=== PATIENT | female | born 1945 | race Caucasian/White ===

== ENCOUNTER 2022-04-30 10:22 | Emergency (ER) | payer MEDICARE, SELFPAY ==
[2022-04-30 10:23] VITALS: BP 183/93; PULSE 92; RESP 14; TEMP 36.1; O2SAT 97; BMI 33.3
--- NOTE | 2022-04-30 10:36 | EX.ED.DYSGE1 ---
HPI History of Present Illness Chief Complaint: Allergic Reaction Informant: patient Narrative Narrative: Patient is a 76-year-old female presenting with swelling of her upper lip. Patient noticed swelling of her upper lip yesterday around 10 AM. It worsens when she was at work yesterday until around 6 PM. She took a dose of 25 mg Benadryl at 7 PM and then up to 50 mg at 11:30 PM. She woke up and continued to have the swelling. She states is not progressed since last night. She also has a rash on her bilateral arms as well as her left hands that is itchy in nature. She also states her back feels itchy. She denies any difficulty breathing. Denies any sensation of her tongue swelling or throat swelling. She denies any GI symptoms. Denies any pain with swallowing, mouth pain or pain with urination/defecation. She denies any new medications. She states she was on a 10-day course of antibiotics for an infected abscess (looks to be doxycycline) that she finished 1 week ago. She is not on any LYLE or ARB's. She denies any history of anaphylaxis. She notes she has cats at home but this is not new. She does feel that her eyelids are little swollen as well. She denies any new lotions, soaps or other new exposures. Denies any new foods. No other complaints at this time. Prior similar symptoms: No PFSH [facility] Medical History Diabetes GERD (gastroesophageal reflux disease) Hypertension Home Medications famotidine 20 mg tablet (Pepcid) 20 mg PO BID #14 tabs 04/30/22 [Rx Last Taken Unknown] prednisone 20 mg tablet 40 mg PO DAILY #8 tabs 04/30/22 [Rx Last Taken Unknown] Allergy/AdvReac Type Severity Reaction Status Date / Time No Known Allergies Allergy Verified 04/30/22 10:22 Social History Smoking Status: Never smoker ROS ROS ED Constitutional Constitutional ED: Denies chills or fever(s) Eyes Eyes: Denies change in vision or diplopia ENT ENT ED: Reports other Details: Upper lip swelling ; Denies rhinorrhea or sore throat Cardiovascular Cardiovascular: Denies chest pain Respiratory/Chest Respiratory/Chest: Denies cough or dyspnea Gastrointestinal Gastrointestinal: Denies abdominal pain, diarrhea or nausea Musculoskeletal Musculoskeletal: Denies arthralgias or myalgias Integumentary Reports rash Neurologic Neurologic: Denies headache(s) EXAM Physical Exam Const Vital Signs: 04/30/22 10:23 Temperature 97 F L Temperature Source Temporal Pulse Rate 92 Respiratory Rate 14 Blood Pressure 183/93 H Blood Pressure Mean 123 Pulse Ox 97 Oxygen Delivery Method Room Air Positive well nourished and well developed General Appearance ED: well developed and NAD HEENT Reports moist mucous membranes HEENT Narrative: Edema of the upper lip. No edema of the tongue or lower lip. Uvula is midline. Normal phonation. Subtle edema of the bilateral upper eyelids. Negative for trauma Eyes PERRL and EOMs intact bilaterally Neck supple Neck Narrative: No stridor. Normal range of motion. Resp normal respiratory effort and clear to auscultation bilaterally Auscultation: Negative for rhonchi or wheezes Cardio regular rate, regular rhythm and no murmurs GI normal to inspection, nondistended, normoactive bowel sounds and non-tender Back/Spine no CVA tenderness Extremity normal to inspection General Extremety ED: Negative for edema or tenderness General Extremity: Negative for edema Neuro oriented x3 Sensorium / Orientation: alert Motor Exam: Negative for general weakness Psych mental status grossly normal Skin Skin Narrative: Scattered erythema on the left fourth and fifth fingers as well as on bilateral forearms and the back. Does not appear significantly raised, questionably urticarial. Negative Nikolsky sign. MDM MDM MDM Narrative Medical decision making narrative: Patient evaluated for upper lip swelling. Differential includes allergic reaction, delayed hypersensitivity reaction and angioedema. Patient is not on any medications that should cause angioedema specifically any LYLE inhibitors or ARB's. She does not have any fever or systemic symptoms making dress syndrome less likely. She has not been on any new medications for the past week so suspicion for an acute drug reaction. Patient vital signs are significant for hypertension which she does have a history of. She is not having any chest pain or symptoms consistent with hypertensive emergency. Patient will be treated with steroids and Pepcid. She has Benadryl at home. She drove here so she is not given a dose of Benadryl. Her symptoms been stable for over 12 hours I do not think she requires extended monitoring or IV medications at this time. Patient counseled on return precautions including development of GI symptoms, difficulty breathing or further swelling of her mouth/tongue. She verbalizes agreement understand this plan. Is discharged home in stable condition. Discharge Plan Triage Chief Complaint: Allergic Reaction ED Provider: Maura Eubanks Dx/Rx/DC Orders Clinical Impression: Swollen upper lip, Allergic reaction Instructions: ED General Allergic Reactions Prescriptions: New prednisone 20 mg tablet 40 mg PO DAILY Qty: 8 0RF famotidine [Pepcid] 20 mg tablet 20 mg PO BID Qty: 14 0RF Primary Care Provider: Dipak Taylor Activity Restrictions/Additional Instructions: You have worsening of your symptoms including swelling of your tongue, more swelling in your mouth, wheezing/shortness of breath or vomiting/diarrhea please return to the emergency room. You may also continue take Benadryl up to 50 mg every 6 hours at home. Exact cause of your reaction is not clear at this time. Disposition Disposition: Home, Self Care
[2022-04-30] MEDS: predniSONE 20 MG Tablet 60 MG PO (11:07)
[2022-04-30] MEDS: Famotidine 20 MG Tablet PO (11:08)
== END 2022-04-30 11:28 | disposition home or self-care (01) ==
PROVIDERS: Emergency Provider Emergency Medicine; PCP Student in an Organized Health Care Education/Training Program; Visit Provider Emergency Medicine
DX: T78.40XA Allergy, unspecified, initial encounter (principal); E11.9 Type 2 diabetes mellitus without complications; I10 Essential (primary) hypertension; R21 Rash and other nonspecific skin eruption; Z79.52 Long term (current) use of systemic steroids; R22.9 Localized swelling, mass and lump, unspecified
CPT/HCPCS: 99283

== ENCOUNTER 2022-06-15 15:58 | Emergency (ER) | payer MEDICARE, SELFPAY ==
[2022-06-15 15:59] VITALS: BP 148/85; PULSE 94; RESP 17; TEMP 36.8; O2SAT 98; BMI 33.5
--- NOTE | 2022-06-15 16:24 | EX.ED.DYSGE1 ---
HPI <BRUNO Ornelas - Last Filed: 06/15/22 16:58> History of Present Illness Chief Complaint: Edema Narrative Narrative: Patient is a 76-year-old Fe with history of hypertension on lisinopril, diabetes that is diet-controlled, hyperlipidemia, acid reflux who presents to the emergency department with hives, lower lip swelling. Patient is on her last day of doxycycline for what her doctor called pneumonia 10 days ago. Patient was seen here on April 30, 2022 for the same. Patient did not have her medication list with her, she was a poor historian. She did not let the ER physician know that she was on lisinopril. However she was post 1 week of doxycycline at that time as well. Patient today is in no respiratory distress. She states she just woke up with some lower lip swelling as well as some hives on her upper extremities and trunk. She denies any difficulty breathing, denies any tongue swelling. PFS <BRUNO Ornelas - Last Filed: 06/15/22 16:58> [facility] Medical History Diabetes GERD (gastroesophageal reflux disease) Hypertension Home Medications famotidine 20 mg tablet (Pepcid) 20 mg PO BID #14 tabs 04/30/22 [Rx Last Taken Unknown] prednisone 20 mg tablet 40 mg PO DAILY #8 tabs 04/30/22 [Rx Last Taken Unknown] aspirin 81 mg capsule 81 mg PO DAILY 06/15/22 [History Last Taken Unknown] doxycycline hyclate 100 mg tablet 100 mg PO BID 06/15/22 [History Last Taken Unknown] etodolac 200 mg capsule 200 mg PO BID 06/15/22 [History Last Taken Unknown] furosemide 20 mg tablet 20 mg PO DAILY 06/15/22 [History Last Taken Unknown] lisinopril 10 mg tablet 10 mg PO DAILY 06/15/22 [History Last Taken Unknown] lovastatin 20 mg tablet 20 mg PO DAILY 06/15/22 [History Last Taken Unknown] omeprazole 20 mg capsule,delayed release 20 mg PO DAILY 06/15/22 [History Last Taken Unknown] prednisone 50 mg tablet 50 mg PO DAILY #5 tabs 06/15/22 [Rx Last Taken Unknown] Allergy/AdvReac Type Severity Reaction Status Date / Time No Known Allergies Allergy Verified 06/15/22 16:01 Social History Smoking Status: Never smoker ROS <BRUNO Ornelas - Last Filed: 06/15/22 16:58> ROS ED ROS Narrative Constitutional: Negative for fever, chills, weight loss, weakness Eyes: Negative for vision loss, vision change, double vision ENT: Negative for any sore throat, ear pain, congestion. Positive for lower lip swelling Cardiovascular: Negative for any chest pain, tightness, palpitations Respiratory: Negative for any cough, sputum production, hemoptysis, dyspnea, dyspnea on exertion, orthopnea Gastrointestinal: Negative for any abdominal pain, nausea, vomiting, diarrhea, constipation, blood in stool, blood in vomit : Negative for any urinary frequency, dysuria, retention, blood in urine Muscle skeletal: Negative for any muscle joint pain, stiffness, myalgias, arthralgias, neck pain, back pain Neurological: Negative for any headache, syncope, numbness or tingling, dizziness Skin: Negative for any rashes, lumps, abrasions, lacerations. Positive for itching, hives Psychiatric: Negative for any depression, anxiety, stress, suicidal ideation, homicidal ideation Hematologic: Negative for any easy bruising, excessive bruising, easy bleeding Allergies: Negative for any eczema, hives, rash EXAM <BRUNO Ornelsa - Last Filed: 06/15/22 16:58> Physical Exam Narrative Exam Narrative: Vital signs reviewed. Patient appears to be in no respiratory distress, patient is stable. HEET: Head normocephalic atraumatic, TMs clear bilaterally. Posterior pharynx is clear, moist mucous membranes. Nares clear bilaterally. Patient does have slight swelling to the lower lip. Negative for any oropharynx swelling. Negative for any trismus, negative for any hot potato voice. Negative for any uvula deviation. Neck: Supple with no lymphadenopathy or tenderness. No signs of meningismus, negative jolt sign. Cardiac: Regular rate and rhythm no murmurs gallops or rubs, equal peripheral pulses bilaterally. Respiratory: Lungs clear to auscultation bilaterally. No chest tenderness. Abdomen: Soft, nontender, nondistended. No abdominal bruit or pulsatile masses. No hepatosplenomegaly Extremities: No peripheral edema, no signs of gross trauma or deformity. Active full range of motion of all extremities. Neuro: Cranial nerves II through XII intact, no focal neurological deficits. Skin: Clean dry and intact with no purpura, petechiae, vesicles or pustules. Patient does have urticaria to her upper extremities, lower legs as well as her trunk. Backs/flank: No CVA tenderness, no midline spinal tenderness, no deformity. Psych: Normal mood and affect. No SI, HI or acute psychosis. Const Vital Signs: 06/15/22 15:59 06/15/22 16:31 Temperature 98.2 F Temperature Source Temporal Pulse Rate 94 Respiratory Rate 17 Respiratory Effort Normal Non-Labored Respiratory Pattern Normal Blood Pressure 148/85 H Blood Pressure Mean 106 Pulse Ox 98 Oxygen Delivery Method Room Air <Dr. Karissa Beltrán MD - Last Filed: 06/15/22 17:16> Physical Exam Const Vital Signs: 06/15/22 15:59 06/15/22 16:31 Temperature 98.2 F Temperature Source Temporal Pulse Rate 94 Respiratory Rate 17 Respiratory Effort Normal Non-Labored Respiratory Pattern Normal Blood Pressure 148/85 H Blood Pressure Mean 106 Pulse Ox 98 Oxygen Delivery Method Room Air MDM <BRUNO Ornelas - Last Filed: 06/15/22 16:58> [facility] Treatment and Re-Evaluation :: Patient appears well, patient appears nontoxic, vital signs are stable. Patient presents to the emergency department with lower lip swelling as well as some urticaria that is around her arms, trunk. Patient had similar symptoms on April 30, 2022, consistent with doxycycline however she was unable to tell the provider that time that she was on lisinopril. She has spoke with her PCP regarding this reaction. Patient is in no distress, there is no evidence of any anaphylaxis. Secondary to this events occurring surrounding doxycycline, as well as the patient being on lisinopril for years, the patient needs to be placed off of lisinopril as well as an allergy to doxycycline. She did speak with her doctor regarding changing from lisinopril as the primary care doctor does know about this reaction. Patient was given 60 mg of oral prednisone here, as well as Pepcid. She will continue the prednisone at home, she will also take Benadryl at home. She not get it today because she is driving and this can make her tired. She was given strict return precaution to return for any worsening mouth swelling, throat swelling, tongue swelling. She verbally understands. All questions answered. She will follow-up with her PCP regarding her blood pressure medicine, she will no longer take doxycycline <Dr. Karissa Beltrán MD - Last Filed: 06/15/22 17:16> [facility] Treatment and Re-Evaluation :: Patient appears well, patient appears nontoxic, vital signs are stable. Patient presents to the emergency department with lower lip swelling as well as some urticaria that is around her arms, trunk. Patient had similar symptoms on April 30, 2022, consistent with doxycycline however she was unable to tell the provider that time that she was on lisinopril. She has spoke with her PCP regarding this reaction. Patient is in no distress, there is no evidence of any anaphylaxis. Secondary to this events occurring surrounding doxycycline, as well as the patient being on lisinopril for years, the patient needs to be placed off of lisinopril as well as an allergy to doxycycline. She did speak with her doctor regarding changing from lisinopril as the primary care doctor does know about this reaction. Patient was given 60 mg of oral prednisone here, as well as Pepcid. She will continue the prednisone at home, she will also take Benadryl at home. She not get it today because she is driving and this can make her tired. She was given strict return precaution to return for any worsening mouth swelling, throat swelling, tongue swelling. She verbally understands. All questions answered. She will follow-up with her PCP regarding her blood pressure medicine, she will no longer take doxycycline Patient seen and evaluated with DAVID. I personally interviewed and examined the patient. I was involved in all aspects of patient's orders, interpretation of results, and treatment. Patient presents secondary to lower lip swelling along with hives on her extremities. Patient states after getting home from latter-day today she noted swelling to her lower lip. She denies tongue swelling or throat tightness. She also noted some hives to her forearms bilaterally. She denies shortness of breath or difficulty swallowing. She does note that she was in the emergency room about a month ago with upper lip swelling. At that time she improved with prednisone. Patient sitting upright in bed no acute distress. She speaking in a strong voice and tolerating secretions well. Head and neck examination does reveal lower lip edema. Intraoral examination reveals no mucosal lesions. No tongue edema. Uvula is midline. No submandibular fullness. Heart is regular rate and rhythm. Lung sounds are clear. Abdomen is soft and nontender. Skin examination reveals urticarial lesions primarily to the volar surfaces of her forearms bilaterally. No open lesions or blisters. Patient's recent hospital visit was reviewed. Interestingly, patient was on doxycycline at the time of that visit and states she is just now finishing up another course of doxycycline at this time. Although as previously documented the patient is not on any LYLE inhibitors, she is on lisinopril and states she has been on lisinopril for years. Patient is given prednisone and Pepcid here. She is advised to stop both the doxycycline and lisinopril. She is going to call her primary care physician tomorrow. Return instructions were given. Patient voices understanding and agreement. Discharge Plan Triage Chief Complaint: Edema ED Midlevel Provider: José Martinez ED Provider: Karissa Beltrán Dx/Rx/DC Orders Clinical Impression: Allergic reaction, Acute urticaria Instructions: ED General Allergic Reactions, ED Hives (Adult) Prescriptions: New prednisone 50 mg tablet 50 mg PO DAILY Qty: 5 0RF No Action prednisone 20 mg tablet 40 mg PO DAILY Qty: 8 0RF famotidine [Pepcid] 20 mg tablet 20 mg PO BID Qty: 14 0RF etodolac 200 mg capsule 200 mg PO BID lisinopril 10 mg tablet 10 mg PO DAILY omeprazole 20 mg capsule,delayed release(DR/EC) 20 mg PO DAILY furosemide 20 mg tablet 20 mg PO DAILY lovastatin 20 mg tablet 20 mg PO DAILY doxycycline hyclate 100 mg tablet 100 mg PO BID aspirin 81 mg Capsule 81 mg PO DAILY Primary Care Provider: Dipak Taylor Referrals: Dipak Taylor DO [Primary Care Provider] - Activity Restrictions/Additional Instructions: You need to take Benadryl at home. You need to return for any worsening mouth swelling, tongue swelling, throat swelling. You will stop taking lisinopril and get on another agent. You also stop taking doxycycline Disposition Disposition: Home, Self Care Discharge Date/Time: 06/15/22 17:12
[2022-06-15] MEDS: predniSONE 20 MG Tablet 60 MG PO (16:26)
[2022-06-15] MEDS: Famotidine 20 MG Tablet 40 MG PO (16:26)
== END 2022-06-15 17:12 | disposition home or self-care (01) ==
PROVIDERS: Emergency Provider Emergency Medicine; PCP Student in an Organized Health Care Education/Training Program; Referring Provider Emergency Medicine; Visit Provider Emergency Medicine
DX: L50.9 Urticaria, unspecified (principal); E11.9 Type 2 diabetes mellitus without complications; T50.905A Adverse effect of unspecified drugs, medicaments and biological substances, initial encounter; I10 Essential (primary) hypertension; E78.5 Hyperlipidemia, unspecified; Z79.899 Other long term (current) drug therapy; Z79.52 Long term (current) use of systemic steroids
CPT/HCPCS: 99283

== ENCOUNTER 2025-02-14 10:55 | Emergency (ER) | payer MEDICARE, SELFPAY ==
[2025-02-14 10:56] VITALS: BP 197/85; PULSE 86; RESP 18; TEMP 36.6; O2SAT 97
--- NOTE | 2025-02-14 11:08 | EX.ED.DYSGE1 ---
HPI History of Present Illness Chief Complaint: Foreign Body Narrative Narrative: Patient is a 79-year-old female with past medical hypertension, diabetes, GERD who presented to the emergency department with chief complaint of sensation of foreign body in her throat which is a pill. She states that she tried to take a pill this morning around 9:00 AM and notes that she felt that this became stuck. She states that she has had an episode where she felt like something was stuck in the past therefore she has had a upper endoscopy as well as a colonoscopy by Dr. Call. She states that her most recent scope was about 2 weeks ago and notes that from what she can understand her upper scope was normal and they did find something noted on the lower scope but cannot further describe this. States that she feels that her saliva is going down without any difficulty. She states that she was unable to drink water as she was spitting this up and felt like this was going to cause her to vomit. PFSH [facility] Medical History GERD (gastroesophageal reflux disease) Hypertension Diabetes Home Medications ?Medication ?Instructions ?Recorded ?Last Taken ?Type famotidine 20 mg tablet (Pepcid) 20 mg PO BID #14 tabs 04/30/22 Unknown Rx prednisone 20 mg tablet 40 mg (2 x 20 mg) PO DAILY #8 tabs 04/30/22 Unknown Rx aspirin 81 mg capsule 81 mg PO DAILY 06/15/22 Unknown History doxycycline hyclate 100 mg tablet 100 mg PO BID 06/15/22 Unknown History etodolac 200 mg capsule 200 mg PO BID 06/15/22 Unknown History furosemide 20 mg tablet 20 mg PO DAILY 06/15/22 Unknown History lisinopril 10 mg tablet 10 mg PO DAILY 06/15/22 Unknown History lovastatin 20 mg tablet 20 mg PO DAILY 06/15/22 Unknown History omeprazole 20 mg capsule,delayed 20 mg PO DAILY 06/15/22 Unknown History release prednisone 50 mg tablet 50 mg PO DAILY #5 tabs 06/15/22 Unknown Rx Allergy/AdvReac Type Severity Reaction Status Date / Time No Known Allergies Allergy Verified 02/14/25 10:57 Social History Smoking Status: Never smoker ROS ROS ED ROS Narrative Constitutional: Denies fevers, chills, headaches Eyes, ears, nose, throat: Complains of difficulty swallowing as noted above Cardiovascular: Denies chest pain Respiratory: Denies shortness of breath Neurological: Denies any numbness, weakness, tingling Musculoskeletal: Denies back pain Skin: Denies any rashes or lesions EXAM Physical Exam Narrative Exam Narrative: General: Patient was lying in bed rest comfortably did not appear to be in acute distress Head: Atraumatic, normocephalic Eyes: PERRL bilaterally, EOMI bilaterally, no conjunctival injection noted, posterior pharynx visualized uvula midline no posterior pharynx erythema noted Neck: Soft, supple, trachea midline no stridor noted Cardiovascular: Regular rate Extremities: +5/5 strength noted in the bilateral upper and lower extremities Neurological: Patient following commands knew that she was at [facility] year is 2024 Skin: Warm, dry, tact no rashes or lesions noted Const Vital Signs: 02/14/25 10:56 02/14/25 11:37 Temperature 98 F Temperature Source Oral Pulse Rate 86 Respiratory Rate 18 Respiratory Effort Normal Non-Labored Respiratory Pattern Normal Blood Pressure 197/85 H Blood Pressure Mean 122 Pulse Ox 97 Oxygen Delivery Method Room Air MDM MDM MDM Narrative Medical decision making narrative: Patient is a 79-year-old female who presents to the emergency department with a concern for a pill/foreign body in her throat. On the differential diagnose includes but limited to foreign body sensation, retained foreign body. Once workup is obtained reviewed she will be reevaluated. Patient given IV fluids glucagon and Zofran, As well as a GI cocktail Patient EKG reviewed showed sinus rhythm with a rate of 188 bpm. After medications were given patient felt that the pill was able to go down she was given oral challenge passes without any vomiting or spitting up she is handling her secretions nontoxic in appearance. Given that she just had a EGD that was performed and was reportedly normal will have her follow back up with her grants assistant in the outpatient setting and return with worsening symptoms or any concerns. She is agreeable with this plan all question concerns answered she was discharged home in stable condition. Discharge Plan Triage Chief Complaint: Foreign Body ED Provider: Martinez Garcia Dx/Rx/DC Orders Clinical Impression: Feeling of foreign body in throat, History of gastroesophageal reflux (GERD), Hypertension Prescriptions: No Action prednisone 20 mg tablet 40 mg PO DAILY Qty: 8 0RF famotidine [Pepcid] 20 mg tablet 20 mg PO BID Qty: 14 0RF etodolac 200 mg capsule 200 mg PO BID lisinopril 10 mg tablet 10 mg PO DAILY omeprazole 20 mg capsule,delayed release(DR/EC) 20 mg PO DAILY furosemide 20 mg tablet 20 mg PO DAILY lovastatin 20 mg tablet 20 mg PO DAILY doxycycline hyclate 100 mg tablet 100 mg PO BID aspirin 81 mg Capsule 81 mg PO DAILY prednisone 50 mg tablet 50 mg PO DAILY Qty: 5 0RF Primary Care Provider: Dipak Taylor Referrals: Dipak Taylor DO [Primary Care Provider, Medical] Activity Restrictions/Additional Instructions: Follow-up with your grants assistant in the outpatient setting. Return with worsening symptoms or any other concerns Print Language: Setswana Disposition Disposition: Home, Self Care
--- NOTE | 2025-02-14 11:19 | EKG12_ITS ---
Test Reason : GENRAL Blood Pressure : */* mmHG Vent. Rate : 73 BPM Atrial Rate : 73 BPM P-R Int : 188 ms QRS Dur : 80 ms QT Int : 386 ms P-R-T Axes : 51 -17 44 degrees QTcB Int : 425 ms Normal sinus rhythm Minimal voltage criteria for LVH, may be normal variant ( R in aVL ) Borderline ECG Confirmed by Alvarez Ayala ([id number]), news video editor TITI MURPHY ([id number]) on 02/20/2025 9:00:17 AM Referred By: Confirmed By: Alvarez Ayala
[2025-02-14] MEDS: Mag /Aluminum/Simeth WCH UDC 30 ML ORAL.SUSP PO (11:27)
[2025-02-14] MEDS: Glucagon 1 MG/ML Syringe IV (11:27)
[2025-02-14] MEDS: Lidocaine 2% Viscous15 ML UDC 15 ML PO (11:27)
[2025-02-14] MEDS: 0.9% Normal Saline (1000mL) 1,000 ML 999 ML IV (11:27)
[2025-02-14 11:36] VITALS: BMI 31.8
[2025-02-14 12:30] VITALS: BP 160/57; PULSE 67; RESP 16; TEMP 36.6; O2SAT 100
== END 2025-02-14 12:32 | disposition home or self-care (01) ==
PROVIDERS: Emergency Provider Emergency Medicine; PCP Student in an Organized Health Care Education/Training Program; Visit Provider Emergency Medicine
DX: T17.298A Other foreign object in pharynx causing other injury, initial encounter (principal); E11.9 Type 2 diabetes mellitus without complications; R09.A2 Foreign body sensation, throat; I10 Essential (primary) hypertension; K21.9 Gastro-esophageal reflux disease without esophagitis; W44.8XXA Other foreign body entering into or through a natural orifice, initial encounter
CPT/HCPCS: 93005; 96361; 96374; 96375; 99284; A4216; J1610; J2405